=== PATIENT | male | born 1950 | race Caucasian/White ===

== ENCOUNTER 2020-11-17 06:13 | Observation (INO) ==
[~2020-11-17 06:13] MED LIST: Buffered Lidocaine 1% SYRIN 1 ml INTRADERM ONE; DiMENhydriNATE IV 50 mg/ml 1 ml VIAL IV PUSH ONE; Famotidine IV 10 MG/ML 2 ml VIAL (20 mg) IV ONE; Lactated Ringers 1000 ml BAG 1,000 ML IV SCH
[2020-11-17] MEDS ORDERED: Famotidine IV 10 MG/ML 2 ml VIAL (20 mg) ONE (08:26)
[2020-11-17] MEDS ORDERED: DiMENhydriNATE IV 50 mg/ml 1 ml VIAL ONE (08:26)
[2020-11-17] MEDS ORDERED: ceFAZolin 2 GM PREMIX 2 GM/50 ML BAG ONE (08:27)
[2020-11-17] MEDS ORDERED: Lidocaine 2% PF 5 ML VIAL ONE (08:49)
[2020-11-17] MEDS ORDERED: Midazolam 2 mg/2 ml VIAL 1 mg/ml 2 ml VIAL (2 mg) ONE (08:49)
[2020-11-17] MEDS ORDERED: EPHEDrine (Pressors) 50 MG/ML VIAL ONE (08:49)
[2020-11-17] MEDS ORDERED: Ropivacaine 5 MG/ML 20 ML VIAL 0.5% (100 MG) ONE (09:31)
[2020-11-17] MEDS ORDERED: Propofol 10 mg/ml 100 ML BTL 100 ML ONE (09:42)
[2020-11-17] MEDS ORDERED: fentaNYL 100 mcg/2 ml 50 MCG/ML VIAL ONE ×2 (10:07→14:45)
[2020-11-17] MEDS ORDERED: Morphine 4 MG/ML VIAL (1 ml) IV PRN (10:43)
[2020-11-17] MEDS ORDERED: Naloxone 0.4 mg VIAL 0.4 mg/ml 1 ml VIAL IV PRN (10:43)
[2020-11-17] MEDS ORDERED: Prochlorperazine 5 mg/ml 2 ml VIAL (10 mg) IV PRN (10:43)
[2020-11-17] MEDS ORDERED: Ondansetron 4 mg VIAL 2 MG/ML 2 ml VIAL IV PRN (13:14)
[2020-11-17] MEDS ORDERED: Lactulose 30 ml UDC PO PRN (13:14)
[2020-11-17] MEDS ORDERED: Magnesium Hydroxide LIQ 30 ML UDC PO PRN (13:14)
[2020-11-17] MEDS ORDERED: diPHENhydraMINE 25 mg TAB PO PRN (13:14)
[2020-11-17] MEDS ORDERED: Morphine 2 MG/ML SYRINGE IV PRN (13:14)
[2020-11-17] MEDS ORDERED: diPHENhydraMINE IV 50 MG/ML 1 ml VIAL (BENADRYL) IV PRN (13:14)
[2020-11-17] MEDS ORDERED: Ondansetron ODT 4 mg TAB 4 MG TAB PO PRN (13:14)
[2020-11-17] MEDS ORDERED: Dextrose 50% Syringe 50 ml 25 GM/50 ML SYRINGE IV PUSH PRN (13:20)
[2020-11-17] MEDS: fentaNYL 100 mcg/2 ml 50 MCG/ML VIAL IV PRN ×2 (14:46→14:57)
[2020-11-17] MEDS ORDERED: Bupivacaine 0.5% SDV PF 30ML VIAL ONE (14:46)
[2020-11-17] MEDS: Lactated Ringers 1000 ml BAG 1,000 ML IV SCH (15:29)
[2020-11-17 16:02] LABS: Calcium 8.3 mg/dL (8.6-10.3); EGFR African American 123.8 (>60); EGFR Non-African American 102.3 (>60); Magnesium 1.9 mg/dL (1.9-2.7); Potassium 3.9 mmol/L (3.5-5.0)
[2020-11-17] MEDS ORDERED: Insulin GLARGINE 100 un/ml 10 ml VIAL SUBCUT SCH ×2 (18:00)
[2020-11-17] MEDS: ceFAZolin 1 GM ADVAN 1 GM in NS 0.9% 50 ML 50 ML IVPB SCH (19:57)
[2020-11-17] MEDS: Magnesium Hydroxide LIQ 30 ML UDC PO SCH (22:03)
[2020-11-18] MEDS: ceFAZolin 1 GM ADVAN 1 GM in NS 0.9% 50 ML 50 ML IVPB SCH ×2 (02:58→11:25)
[2020-11-18] MEDS: Lactated Ringers 1000 ml BAG 1,000 ML IV SCH (02:58)
[2020-11-18 04:27] LABS: Hematocrit 30 % (42-52); Hemoglobin 10.7 g/dL (14.0-18.0); Mean Platelet Volume 7.4 fL (7.4-10.4); Platelet Count 163 10^3/uL (150-450)
[2020-11-18 04:45] LABS: Calcium 7.8 mg/dL (8.6-10.3); EGFR Non-African American 95.1 (>60); Potassium 4.4 mmol/L (3.5-5.0)
[2020-11-18] MEDS: Magnesium Hydroxide LIQ 30 ML UDC PO SCH (08:43)
[2020-11-18] MEDS ORDERED: Vitamin THERAPEUTIC TAB PO SCH (09:00)
[2020-11-18] MEDS ORDERED: DULoxetine DR 60 mg CAP PO SCH (09:00)
[2020-11-18] MEDS ORDERED: Insulin GLARGINE 100 un/ml 10 ml VIAL SUBCUT SCH ×2 (09:00)
[2020-11-18 12:02] VITALS: BP 131/51
== END 2020-11-18 11:31 | disposition home or self-care (01) ==
LOC: AA 06:13 → INTOOBSV 06:13 → SSU 13:14
PROVIDERS: ADMIT Orthopaedic Surgery Adult Reconstructive Orthopaedic Surgery; ATTEND Orthopaedic Surgery Adult Reconstructive Orthopaedic Surgery